=== PATIENT | male | born 1945 | race Caucasian/White ===

== ENCOUNTER 2022-06-20 05:30 | Emergency (ER) | payer MEDICARE, SELFPAY ==
[2022-06-20] VITALS (42 sets, daily range): BP systolic 117–168; BP diastolic 80–148; PULSE 131–178; RESP 13–28; O2SAT 93–100
--- NOTE | ~2022-06-20 | XR_ITS ---
Portable chest x-ray Comparison: None Clinical History: Shortness of breath, chest pain Findings: There is probable minimal hazy pulmonary edema pattern. Cardiomediastinal silhouette is m ildly prominent. Bones and soft tissues are unremarkable. Impression: Probable minimal pulmonary edema pattern. Mild cardiomegaly. Reviewed, dictated and finalized at [facility]. Impression: Probable minimal pulmonary edema pattern. Mild cardiomegaly.
--- NOTE | 2022-06-20 05:42 | ECG_ITS ---
Measurements Intervals [place] Rate: 193 P: [place]: 0 QRS: -87 QRSD: 164 T: 86 QT: 283 QTc: 508 Interpretive Statements WIDE COMPLEX TACHYCARDIA, CONSIDER VENTRICULAR TACHYCARDIA FREQUENT VENTRICULAR PREMATURE COMPLEX RIGHT BUNDLE BRANCH BLOCK LEFT VENTRICULAR HYPERTROPHY AND ST-T CHANGE INFERIOR ST ELEVATION- CONSIDER ACUTE INFERIOR INFARCT BASELINE ARTIFACT- I, III, AVR, AVL, AVF ABNORMAL ECG NO PREVIOUS ECG AVAILABLE FOR COMPARISON Electronically Signed On 06-20-2022 7:00:38 CDT by Maxx Lilly D.O.
[2022-06-20] MEDS: AMIODARONE 150 MG/D5W 100 ML 150 MG/100 ML BAG 600 MG IV CONT ×2 (05:45→06:45)
--- NOTE | 2022-06-20 05:48 | ED.SOB ---
HPI - SOB/Dyspnea General Chief Complaint: Shortness of Breath/Dyspnea <Helen Johnson MD - Last Filed: 06/21/22 12:05> Stated Complaint: reports inability to sleep, increased sob 4 days <Helen Johnson MD - Last Filed: 06/21/22 12:05> Time Seen by Provider: 06/20/22 05:45 <Helen Johnson MD - Last Filed: 06/21/22 12:05> History of Present Illness HPI Narrative: Patient is a 76-year-old male presenting with shortness of breath. Patient states that for the last several days he has been having difficulty sleeping. States that he feels like he needs to catch his breath randomly. He denies any chest pain. No palpitations or lightheadedness. No recent fevers or chills. No cough, abdominal pain, nausea or vomiting, leg swelling, diarrhea, dysuria. <Helen Johnson MD - Last Filed: 06/21/22 12:05> Related Data Allergies/Adverse Reactions: Allergies Allergy/AdvReac Type Severity Reaction Status Date / Time No Known Allergies Allergy Verified 06/20/22 05:43 <Helen Johnson MD - Last Filed: 06/21/22 12:05> Review of Systems Review of Systems: All systems reviewed & are unremarkable except as noted in HPI and below <Helen Johnson MD - Last Filed: 06/21/22 12:05> Exam Narrative: GENERAL: Well-appearing, well-nourished, and in no acute distress. HEAD: Normocephalic, atraumatic. EYES: PERRLA and EOMI. ENT: Nares clear, no rhinorrhea or epistaxis. Mucous membranes moist. NECK: Supple. CHEST: Clear to auscultation. No respiratory distress. HEART: Tachycardic, regular rhythm ABDOMEN: Soft, nontender, nondistended EXTREMITIES: Normal range of motion. No edema. SKIN: Warm, dry, no rash. NEURO: No focal deficits. Alert and oriented x3. PSYCH: Normal mood and affect. <Helen Johnson MD - Last Filed: 06/21/22 12:05> Course Consultations Consultation #1: [id number]: Cardiology paged and I spoke with Dr. Hart regarding the stable ventricular tachycardia. Patient has already received a loading dose of amio and has been placed on an amio drip. Blood work is starting to come back. Troponin is elevated at 2.6. Potassium is 3.5. Magnesium is 2.5. Patient continues to deny any complaints other than thirst. Dr. Hart recommends another loading dose of amio. If he remains in V. tach, will likely electively cardiovert. <Helen Johnson MD - Last Filed: 06/21/22 12:05> Vital Signs Vital signs: Vital Signs Pulse Rate 156 H 06/20/22 05:41 Pulse Oximetry 100 06/20/22 05:41 Oxygen Delivery Room Air 06/20/22 05:41 Pulse Rate 177 H 06/20/22 11:07 Respiratory Rate 24 H 06/20/22 11:07 Blood Pressure 127/88 06/20/22 11:07 Pulse Oximetry 99 06/20/22 11:07 Oxygen Delivery Non-Rebreather Mask 06/20/22 07:05 Oxygen Flow Rate 15 06/20/22 07:05 <Helen Johnson MD - Last Filed: 06/21/22 12:05> Vital Signs Pulse Rate 156 H 06/20/22 05:41 Pulse Oximetry 100 06/20/22 05:41 Oxygen Delivery Room Air 06/20/22 05:41 Pulse Rate 177 H 06/20/22 11:07 Respiratory Rate 24 H 06/20/22 11:07 Blood Pressure 127/88 06/20/22 11:07 Pulse Oximetry 99 06/20/22 11:07 Oxygen Delivery Non-Rebreather Mask 06/20/22 07:05 Oxygen Flow Rate 15 06/20/22 07:05 <Kacey Morgan MD - Last Filed: 06/20/22 11:08> Procedures Other Procedure Procedure 1: Other Procedure: pt underwent synchronized cardioversion for VT. First attempt at 100J without change in rhythm. Reattempted at 100J again without change. Pt remained adequately sedated and was cardioverted again twice at 200J. Following cardioversion at 200J, pt had one narrow QRS complex before again going back into VT. Ceased cardioversion at this point. <Helen Johnson MD - Last Filed: 06/21/22 12:05> MDM - SOB/Dyspnea MDM Narrative Medical decision making narrative: Patient is a 76-year-old male presenting with worsening shortness of benny
[2022-06-20 05:56] LABS: Basophils Absolute Auto 0.1 K/mm3 (0.0-0.1); Basophils Percent Auto 0.5 % (0.2-1.2); Eosinophils Absolute Auto 0.1 K/mm3 (0-0.3); Eosinophils Percent Auto 0.5 % (0-4.4); Hematocrit 42.7 % (42.0-52.0); Hemoglobin 13.8 g/dL (14.0-18.0); Immature Granulocyte Absolute 0.05 K/mm3 (0.00-0.031); Immature Granulocyte Percent A 0.5 % (0-0.5); Lymphocytes Absolute Auto 1.58 K/mm3 (0.9-3.2); Lymphocytes Percent Auto 14.2 % (18.3-44.2); Mean Corpuscular HGB Conc 32.3 g/dl (32-36); Mean Corpuscular Hemoglobin 30.4 pg (26-34); Mean Corpuscular Volume 94.1 fl (80-100); Mean Platelet Volume 10.2 fl (7.4-10.4); Monocytes Absolute Auto 1.2 K/mm3 (0.1-0.6); Monocytes Percent Auto 11.1 % (2.6-8.5); Neutrophils Absolute Auto 8.1 K/mm3 (1.3-6.7); Neutrophils Percent Auto 73.2 % (45.5-73.1); Platelet Count Result 372 k/mm3 (150-375); Red Blood Count 4.54 M/mm3 (4.6-6.20); Red Cell Distribution Width 13.3 % (11.5-14.5); White Blood Count 11.1 K/mm3 (4.5-10.0)
[2022-06-20] MEDS: SODIUM CHLORIDE 0.9% IV 1,000 ML 999 ML IV CONT (06:01)
[2022-06-20] MEDS: AMIODARONE 360 MG/D5W 200 ML 360 MG/200 ML BAG 33.33 MG IV CONT (06:02)
[2022-06-20 06:07] LABS: INR 1.1; Partial Thromboplastin Time 27.1 SECONDS (22.3-36.8)
[2022-06-20 06:08] LABS: Alanine Aminotransferase 45 U/L (6-50); Albumin Level 4.4 g/dL (3.5-5.1); Alkaline Phosphatase 102 U/L (38-126); Anion Gap 13 mmol/L (8-16); Aspartate Amino Transferase 54 U/L (17-59); Bilirubin,Total 0.7 mg/dL (0.2-1.3); Blood Urea Nitrogen 42 mg/dL (9-20); Calcium 9.1 mg/dL (8.4-10.2); Carbon Dioxide 23 mmol/L (22-30); Chloride 106 mmol/L (98-107); Estimated CRCL calculation 32 ml/min; Estimated Glomerular Filt Rate 37; Glucose 179 mg/dL (65-110); Lipase 101 U/L (23-300); Potassium 3.5 mmol/L (3.4-5.0); Sodium 142 mmol/L (137-145)
[2022-06-20 06:19] LABS: Lactic Acid Reflex 3.4 mmol/L (0.7-2.0)
[2022-06-20 06:21] LABS: Magnesium 2.5 mg/dL (1.6-2.3); Phosphorus 4.2 mg/dL (2.5-4.5)
[2022-06-20] MEDS: POTASSIUM CHLORIDE INJ 40 MEQ in SODIUM CHLORIDE 0.9% IV 500 ML 130 MEQ IVPB (06:52)
[2022-06-20] MEDS: fentaNYL CITRATE INJ (*CRX) 100 MCG/2 ML VIAL (06:59)
[2022-06-20] MEDS: MIDAZOLAM HCL (*CRX) 2 MG/2 ML VIAL (07:02)
--- NOTE | 2022-06-20 07:17 | PC.NURSE ---
0705 - MD order for Sync Cardiovert @ 100 J. HR remains unchanged at 175. 0708 - MD order 2nd Sync Cardiovert @ 100 J. HR remained unchanged at 174. 0709 - MD ordered 3rd Sync Cardiovert @ 200 J. HR remains unchanged at 175. 0711 - MD ordered 4th Sync Cardiovert @ 200 J. HR remained unchanged at 175.
--- NOTE | 2022-06-20 07:30 | PC.NURSE ---
Pt is very drowsy, sleepy, responding to verbal stimuli and falls back to sleep.
--- NOTE | 2022-06-20 07:51 | PC.NURSE ---
Pt is slowly waking up, Amiodarone on hold at this time per EDP.
--- NOTE | 2022-06-20 08:02 | PC.NURSE ---
Pt is fully awake at this time, HR 174.
--- NOTE | 2022-06-20 08:06 | PC.NURSE ---
Amiodarone restarted per verbal order from EDp, HR 175, BP 146/86, R 22, O2 100%
[2022-06-20 09:05] LABS: Reflex Lactic Acid Yes or No Add Lactic
[2022-06-20 09:36] LABS: Lactic Acid 4.1 mmol/L (0.7-2.0)
--- NOTE | 2022-06-20 10:38 | PC.NURSE ---
Pt admitted to [facility] to ICU bed [id number], report given to Layne DEL VALLE at 1030am, waiting on transportation.
--- NOTE | 2022-06-20 11:13 | PC.NURSE ---
Pt has been transferred with Amiodarone drip currently going on.
== END 2022-06-20 11:15 | disposition short-term general hospital (02) ==
PROVIDERS: Emergency Medicine; Emergency Provider Emergency Medicine; PCP Internal Medicine
DX: I47.20 Ventricular tachycardia, unspecified (principal); R79.89 Other specified abnormal findings of blood chemistry; I49.3 Ventricular premature depolarization; I45.10 Unspecified right bundle-branch block; I51.7 Cardiomegaly; R94.31 Abnormal electrocardiogram [ECG] [EKG]
CPT/HCPCS: 36415; 71045; 80053; 83605; 83690; 83735; 84100; 84484; 85025; 85610; 85730; 93005; 96361; 96365; 96366; 96367; 96375; 99285; J0282; J2250; J2690; J3010; J3480; J7030; J7040